=== PATIENT | female | born 1955 | race Caucasian/White ===

== ENCOUNTER 2020-04-04 10:16 | Observation (INO) | payer MEDICARE, OTHER, SELFPAY ==
[2020-04-04] VITALS (7 sets, daily range): BP systolic 96–134; BP diastolic 48–75; PULSE 54–93; RESP 14–18; TEMP 36.2–36.4; O2SAT 100; BMI 34.2
--- NOTE | ~2020-04-04 | CT_ITS ---
EXAMINATION: CT chest abdomen wo con DATE: 04/04/2020 11:14 INDICATION: Gastroesophageal hernia repair presenting with pain in the region of the repair. TECHNIQUE: Computed tomography (CT) of the chest and abdomen was performed without intravenous contra st. Automated exposure control and iterative reconstruction technique were employed. The dose-length product was 656.76 mGy-cm. COMPARISON: None FINDINGS: CHEST CT: Eventration along the diaphragm. Minimal dependent and basilar atelectasis in both lungs. Calcified l eft lower lobe nodule and calcified left hilar lymph node consistent with old granulomatous disease. No pneumonia, pulmonary edema, pleural effusion or pneumothorax. Heart size is normal. No pericardial effusion. Small focus of atherosclerotic calcification at or near the bifurcation of the left main c oronary artery. Thoracic aorta is normal in caliber. No pathologically enlarged thoracic lymphadenopa thy. Residual/recurrent moderate-sized sliding-type hiatal hernia with multiple surgical clips at the thoracic hiatus likely related to reported prior hiatal hernia repair. Moderate to severe disc heigh t loss with Modic type III sclerotic endplate changes at T8-T9. Otherwise mild thoracic spondylosis. ABDOMEN CT: Common bile duct is dilated to 12 mm and there is mild intrahepatic biliary ductal dilation which cou ld be related to prior cholecystectomy with surgical clips at the gallbladder fossa. No definitive ob structing stone or mass identified at the distal common bile duct. Multiple splenic calcifications co nsistent with old granulomatous disease. Pancreas, bilateral adrenal glands and kidneys are normal. T here is extensive scattered colonic diverticulosis without adjacent inflammatory change to suggest di verticulitis. The appendix and tip of the cecum are not included within the region of imaging. The vi sualized portions of the small bowel are normal. Tiny fat-containing umbilical hernia. No pathologica lly enlarged abdominal lymphadenopathy. 2-3 mm anterolisthesis L4 on L5. Severe bilateral facet osteo arthritis at L4-L5 and L5-S1. IMPRESSION: 1. Moderate-sized residual/recurrent sliding-type hiatal hernia with multiple surgical clips at the t horacic hiatus consistent with reported history of prior hiatal hernia repair. 2. Mild intra and extra hepatic biliary ductal dilation without evident obstructing lesion which may be related to prior cholecystectomy. Correlate with liver function tests. 3. Diverticulosis. Reviewed, dictated and finalized at location A. IMPRESSION: 1. Moderate-sized residual/recurrent sliding-type hiatal hernia with multiple s urgical clips at the thoracic hiatus consistent with reported history of prior hiatal hernia repair. 2. Mild intra and extra hepatic biliary ductal dilation without evident obstruc ting lesion which may be related to prior cholecystectomy. Correlate with liver function tests. 3. Diverticulosis.
--- NOTE | 2020-04-04 10:52 | ECG_ITS ---
Measurements Intervals [place] Rate: 58 P: 31 NV: 155 QRS: -25 QRSD: 87 T: 6 QT: 406 QTc: 400 Interpretive Statements SINUS BRADYCARDIA RSR' IN V1 OR V2, CONSIDER RIGHT VENTRICULAR HYPERTROPHY OR RIGHT VCD VOLTAGE CRITERIA FOR LVH BORDERLINE ECG Electronically Signed On 04-04-2020 11:32:13 CDT by Arnoldo Daniels D.O.
[2020-04-04 10:59] LABS: Basophils Percent Auto 0.7 % (0.2-1.2); Eosinophils Absolute Auto 0.5 K/mm3 (0-0.3); Eosinophils Percent Auto 8.6 % (0-4.4); Hematocrit 40.4 % (37.0-47.0); Hemoglobin 13.1 g/dL (12.0-15.0); Immature Granulocyte Absolute 0.02 K/mm3 (0.00-0.031); Immature Granulocyte Percent A 0.3 % (0-0.5); Lymphocytes Absolute Auto 1.84 K/mm3 (0.9-3.2); Mean Corpuscular HGB Conc 32.4 g/dl (32-36); Mean Corpuscular Hemoglobin 28.2 pg (26-34); Mean Corpuscular Volume 86.9 fl (80-100); Mean Platelet Volume 9.9 fl (7.4-10.4); Monocytes Absolute Auto 0.3 K/mm3 (0.1-0.6); Monocytes Percent Auto 5.4 % (2.6-8.5); Neutrophils Absolute Auto 3.4 K/mm3 (1.3-6.7); Platelet Count Result 249 k/mm3 (150-375); Red Blood Count 4.65 M/mm3 (4.2-5.4); Red Cell Distribution Width 14.2 % (11.5-14.5); White Blood Count 6.1 K/mm3 (4.5-10.0)
[2020-04-04 11:02] LABS: Add Urine Microscopic? NO; Appearance Urine Clear (Clear); Bilirubin Urine Negative (Negative); Blood Urine Negative (Negative); Color Urine Straw (Yellow); Glucose Urine UA Negative (Negative); Ketones Urine Negative (Negative); Leukocyte Esterase Ur Negative LEU/UL (Negative); Nitrate Urine Negative (Negative); Protein Urine Negative (Negative); Specific Grav Ur 1.008 (1.001-1.035); Urobilinogen Urine Negative mg/dL (<2.0)
[2020-04-04 11:12] LABS: Alanine Aminotransferase 32 U/L (4-35); Albumin Level 4.4 g/dL (3.5-5.1); Alkaline Phosphatase 122 U/L (38-126); Anion Gap 7 mmol/L (8-16); Aspartate Amino Transferase 78 U/L (14-36); Bilirubin,Total 1.3 mg/dL (0.2-1.3); Blood Urea Nitrogen 15 mg/dL (7-17); Calcium 9.4 mg/dL (8.4-10.2); Carbon Dioxide 30 mmol/L (22-30); Chloride 97 mmol/L (98-107); Estimated CRCL calculation 35 ml/min; Estimated Glomerular Filt Rate 41; Glucose 145 mg/dL (65-105); Lipase 1939 U/L (23-300); Potassium 3.9 mmol/L (3.4-5.0); Sodium 134 mmol/L (137-145)
--- NOTE | 2020-04-04 12:00 | ED.ABDPAIN ---
HPI - Abdominal Pain General Chief Complaint: Abdominal Pain <Roxanne Quevedo PA-C - Last Filed: 04/04/20 13:29> Stated Complaint: abd pain <Roxanne Quevedo PA-C - Last Filed: 04/04/20 13:29> Time Seen by Provider: 04/04/20 10:38 <Roxanne Quevedo PA-C - Last Filed: 04/04/20 13:29> Source: patient <Roxanne Quevedo PA-C - Last Filed: 04/04/20 13:29> Mode of arrival: ambulatory <PJ Ferrer Last Filed: 04/04/20 13:29> Limitations: no limitations <Roxanne Quevedo PA-C - Last Filed: 04/04/20 13:29> History of Present Illness HPI narrative: Patient with history of hiatal and esophageal hernia repair in 2010 and cholecystectomy in 1997 presents with CC of epigastic pain that began at approximately 9:30 am after eating a burger. Patient states she does not normally struggle with abdominal pain and has been eating and drinking normally and had a normal bowel movement yesterday. She denies chest pain, SOB, MONIQUE. She reports chills initially when the discomfort began. She reports that the discomfort feels like a bloating pressure epigastrically. She reports nausea has improved and denies vomiting. She denies alcohol use, history of pancreatitis, or hepatitis. <Roxanne Quevedo PA-C - Last Filed: 04/04/20 13:29> Related Data Home Medications: Home Medications Medication Instructions Recorded Confirmed atenolol 25 mg PO DAILY 04/04/20 04/04/20 calcium carbonate [Calcium 600] 600 mg PO BID 04/04/20 04/04/20 gabapentin 600 mg PO TID 04/04/20 04/04/20 lisinopril 2.5 mg PO DAILY 04/04/20 04/04/20 sertraline 50 mg PO HS 04/04/20 04/04/20 simvastatin 40 mg PO HS 04/04/20 04/04/20 tramadol 50 mg PO Q6H PRN 04/04/20 04/04/20 venlafaxine [Effexor XR] 150 mg PO QAM 04/04/20 04/04/20 zolpidem [Ambien] 5 mg PO HS PRN 04/04/20 04/04/20 <Roxanne Quevedo PA-C - Last Filed: 04/04/20 13:29> Allergies/Adverse Reactions: Allergies Allergy/AdvReac Type Severity Reaction Status Date / Time No Known Allergies Allergy Verified 04/04/20 13:52 <Roxanne Quevedo PA-C - Last Filed: 04/04/20 13:29> Review of Systems Review of Systems: Narrative: CONSTITUTIONAL: Denies fever, chills, or sweats. EYES: Denies visual changes, redness, or discharge. ENT: Denies rhinorrhea, congestion, sore throat, or otalgia. CARDIOVASCULAR: Denies chest pain, palpitations, or edema. RESPIRATORY: Denies cough or dyspnea. GASTROINTESTINAL:Reports epigastric pain and resolved nausea, denies vomiting or diarrhea GENITOURINARY: Denies dysuria or hematuria. SKIN: Denies rash or itching. MUSCULOSKELETAL: Denies back pain, myalgia, or joint pain NEUROLOGIC: Denies headache, numbness, dizziness, or weakness. PSYCHIATRIC: Denies anxiety or depression. <Roxanne Quevedo PA-C - Last Filed: 04/04/20 13:29> [facility] Past Medical History Medical History: Medical History (Updated 04/05/20 @ 18:34 by Dustin Garg MD) Depression with anxiety Hiatal hernia Hyperlipidemia Hypertension Laceration of right knee at age 3 repair Lymph nodes enlarged calcified lymph nodes removed under Thatch and left leg <Roxanne Quevedo PA-C - Last Filed: 04/04/20 13:29> Surgical History Surgical History: Surgical History (Updated 04/04/20 @ 19:42 by Carly Santana NP) History of repair of hiatal hernia Hx of cholecystectomy <Roxanne Quevedo PA-C - Last Filed: 04/04/20 13:29> Family History Family History: Family History (Updated 04/04/20 @ 19:43 by Carly Santana NP) Father Chronic obstructive pulmonary disease Lung cancer Mother Chronic obstructive pulmonary disease Atrial fibrillation Sibling Coronary heart disease Sibling Metastatic breast cancer <Roxanne Quevedo PA-C - Last Filed: 04/04/20 13:29> Social History Social History: Social History (Updated 04/04/20 @ 19:45 by Carly Santana NP) Social History: the patient retired from being a nurse at [employer] but
--- NOTE | 2020-04-04 13:40 | ADMGEN ---
This patient, Gaby Medina, was admitted to Medical Room 252-. Patient/family oriented to hospital policies and general routines including ID bracelet, bed and alarms, visiting hours, pain management, procedures, bathroom and other care routines, personal items, smoking policy, room service/diet, and visiting hours. Valuables list has been completed. Information on how to activate the Rapid Response Team has been discussed. Patient/Family are encouraged to report perceived risks to care and to ask questions if they do not understand what they are told or what they should do.
[2020-04-04] MEDS: SODIUM CHLORIDE 0.9% IV 1,000 ML 125 ML IV CONT ×2 (14:37→23:06)
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
[2020-04-04] MEDS: GABAPENTIN 300 MG CAPSULE 600 MG PO (21:28)
[2020-04-04] MEDS: SERTRALINE HCL 50 MG TABLET PO (21:28)
[2020-04-05 04:46] VITALS: BP 125/50; PULSE 58; RESP 16; TEMP 36.2; O2SAT 99
[2020-04-05 05:36] LABS: Basophils Percent Auto 0.9 % (0.2-1.2); Eosinophils Absolute Auto 0.6 K/mm3 (0-0.3); Eosinophils Percent Auto 11.9 % (0-4.4); Hematocrit 34.7 % (37.0-47.0); Hemoglobin 11.2 g/dL (12.0-15.0); Lymphocytes Absolute Auto 1.99 K/mm3 (0.9-3.2); Lymphocytes Percent Auto 42.4 % (18.3-44.2); Mean Corpuscular HGB Conc 32.3 g/dl (32-36); Mean Corpuscular Hemoglobin 27.7 pg (26-34); Mean Corpuscular Volume 85.9 fl (80-100); Mean Platelet Volume 10.1 fl (7.4-10.4); Monocytes Absolute Auto 0.4 K/mm3 (0.1-0.6); Monocytes Percent Auto 7.7 % (2.6-8.5); Neutrophils Absolute Auto 1.7 K/mm3 (1.3-6.7); Neutrophils Percent Auto 37.1 % (45.5-73.1); Platelet Count Result 210 k/mm3 (150-375); Red Blood Count 4.04 M/mm3 (4.2-5.4); Red Cell Distribution Width 13.7 % (11.5-14.5); White Blood Count 4.7 K/mm3 (4.5-10.0)
[2020-04-05 05:48] LABS: Alanine Aminotransferase 36 U/L (4-35); Albumin Level 3.5 g/dL (3.5-5.1); Alkaline Phosphatase 99 U/L (38-126); Anion Gap 4 mmol/L (8-16); Aspartate Amino Transferase 54 U/L (14-36); Bilirubin,Total 1.1 mg/dL (0.2-1.3); Blood Urea Nitrogen 14 mg/dL (7-17); Calcium 8.6 mg/dL (8.4-10.2); Carbon Dioxide 24 mmol/L (22-30); Chloride 108 mmol/L (98-107); Cholesterol 143 mg/dL (0-200); Estimated CRCL calculation 50 ml/min; Estimated Glomerular Filt Rate > 60; Glucose 84 mg/dL (65-105); HDL Direct 39 mg/dL; Lipase 116 U/L (23-300); Sodium 136 mmol/L (137-145); Triglycerides 99 mg/dL (<150)
[2020-04-05 05:59] LABS: LDL Cholesterol Direct 84 mg/dL
[2020-04-05] MEDS: SODIUM CHLORIDE 0.9% IV 1,000 ML 125 ML IV CONT (06:55)
[2020-04-05 09:09] VITALS: PULSE 60
[2020-04-05] MEDS: atenoloL 25 MG TABLET PO (09:09)
[2020-04-05] MEDS: CALCIUM CARBONATE (OSCAL) 500 MG TABLET PO ×2 (09:10→16:56)
[2020-04-05] MEDS: VENLAFAXINE HCL XR 75 MG CAP.ER.24H 150 MG PO (09:10)
[2020-04-05] MEDS: GABAPENTIN 300 MG CAPSULE 600 MG PO ×3 (09:10→16:56)
[2020-04-05 14:00] VITALS: BP 123/42; PULSE 54; RESP 12; TEMP 36.3; O2SAT 99
--- NOTE | 2020-04-05 18:28 | PM.DS ---
DS: Admitting Diagnosis Admitting Diagnosis Admitting Diagnosis: pancreatitis DS: Discharge Diagnosis Discharge Diagnosis (1) Acute pancreatitis: Qualifiers: Acute pancreatitis complication: no infection or necrosis Pancreatitis type: unspecified pancreatitis type Qualified Code(s): K85.90 - Acute pancreatitis without necrosis or infection, unspecified Code(s): K85.90 - Acute pancreatitis without necrosis or infection, unspecified Status: Acute Assessment and Plan: The patient began to have abdominal pain after eating a burger. Labs showing lipase of 1940, mild eosinophilia, elevated Cr to 1.3, mild elevateion of AST and normal UA. CT scan showing normal pancreas and mild intra and extra hepatic biliary ductal dilation without evident obstructing lesion which may be related to prior cholecystectomy. TG 99, total chol 143, LDL 84. She probably passed a biliary stone. Patietn started on IV fluids. She was made NPO. Lipase normalized. Her pain resolved. She was started on a clear liquid diet and advanced to a low fat diet. She sis not have any recurent symptoms. She was able to be discharged home. (2) RODGER (acute kidney injury): Code(s): N17.9 - Acute kidney failure, unspecified Status: Acute Assessment and Plan: Cr 1.3 on admission probably related to dehydration. Kidneys apperaed normal on CT. She was made NPO and stared on IV fluids. repeat renal function was normal. (3) Hypertension: Code(s): I10 - Essential (primary) hypertension Status: Chronic Assessment and Plan: BP soft at times. Atenolol was continued which she tolerated well but lisinopril remained on hold. SBP now in the 12's so Lisinopril resumed at discharge since it is a small dose and she should be able to tolerate. (4) Hyperlipidemia: Code(s): E78.5 - Hyperlipidemia, unspecified Status: Chronic Assessment and Plan: AST 78 and ALT normal at 32 on admission. [place] related to above. Simvastatin was held. Repeat AST 54 and ALT 36 so tis was resumed at discharge. (5) Depression with anxiety: Code(s): F41.8 - Other specified anxiety disorders Status: Chronic Assessment and Plan: Mood remained stable. We continued her Effexor and Zoloft. (6) Hiatal hernia: Code(s): K44.9 - Diaphragmatic hernia without obstruction or gangrene Status: Chronic Assessment and Plan: Patient with chronic hiatal hernia that she has had repaired once before. CT scan showing moderate-sized residual/recurrent sliding-type hiatal hernia with multiple surgical clips at the thoracic hiatus consistent with reported history of prior hiatal hernia repair. DS: Summary Hospital Course Reason for hospitalization: 64yo female here for abdominal pain. Please see H&P for details Hospital Course: As above Time Spent with Patient Time attestation: Total time spent providing and/or coordinating discharge services:36 minutes Time spent: Greater than 30 minutes Exam Narrative: Exam Narrative: AF 123/42 54 12 99% Gen - NARD Chest - CTA bilaterally, nml RR CV - RRR S1/S2 Abd - Soft, NT/ND, Positive BS Ext - No pedal edema Psych - Nml mood and affect Skin - Warm and dry DS: Data Data Completed and Pending Labs on day of discharge: Labs from last 24 hours 04/05/20 04/05/20 04/05/20 05:14 05:14 05:14 WBC 4.7 RBC 4.04 L Hgb 11.2 L Hct 34.7 L MCV 85.9 MCH 27.7 MCHC 32.3 RDW 13.7 Plt Count 210 MPV 10.1 Immature Gran % (Auto) 0.0 Neut % (Auto) 37.1 L Lymph % (Auto) 42.4 [place] % (Auto) 7.7 Eos % (Auto) 11.9 H Baso % (Auto) 0.9 Lymph # (Auto) 1.99 [place] # (Auto) 0.4 Eos # (Auto) 0.6 H Baso # (Auto) 0.0 Abs Immat Gran (auto) 0.00 Absolute Neuts (auto) 1.7 Absolute Nucleated RBC 0.0 Nucleated RBC % 0.0 Sodium 136 L Potassium 4.0 Chloride 108 H Car
== END 2020-04-05 19:00 | disposition home or self-care (01) ==
LOC: ANHED 10:55 → ANH2MED 13:29
PROVIDERS: Nurse Practitioner; Admitting Provider Family Medicine; Emergency Provider General Practice; PCP Internal Medicine; Visit Provider Internal Medicine
DX: K85.90 Acute pancreatitis without necrosis or infection, unspecified (principal); R10.13 Epigastric pain; K44.9 Diaphragmatic hernia without obstruction or gangrene; I10 Essential (primary) hypertension; E78.5 Hyperlipidemia, unspecified; F41.8 Other specified anxiety disorders
CPT/HCPCS: 36415; 71250; 74150; 80053; 80061; 81003; 83690; 84443; 85025; 93005; 96360; 96361; 99285; A9270; G0378; J7030

== ENCOUNTER 2020-05-06 11:37 | Emergency (ER) | payer MEDICARE, OTHER, SELFPAY ==
--- NOTE | 2020-05-06 11:41 | ED.SKABFB ---
HPI - Skin/Abscess/Foreign Bdy General Chief complaint: Skin/Abscess/Foreign Body Stated complaint: splinter Time Seen by Provider: 05/06/20 11:44 Source: patient and RN notes reviewed History of Present Illness HPI narrative: Patient is a 65-year-old female who presents the urgent care with complaints of a splinter to the right hand. Patient states that she ran her hand over her back railing last night and a large splinter went into the right hand. Patient states that she was able to remove part of the splinter but does feel like there is some left in the hand . Patient states that it is slightly painful to the area and red. Denies of any other acute complaints or injuries. No acute distress noted. Patient aware of the plan of care. Some parts of this dictation were generated by voice recognition software and may contain typographical and/or grammatical inaccuracies. Related Data Home Medications Medication Instructions Recorded Confirmed atenolol 25 mg PO DAILY 04/04/20 05/06/20 calcium carbonate [Calcium 600] 600 mg PO BID 04/04/20 05/06/20 gabapentin 600 mg PO TID 04/04/20 05/06/20 lisinopril 2.5 mg PO DAILY 04/04/20 05/06/20 sertraline 50 mg PO HS 04/04/20 05/06/20 simvastatin 40 mg PO HS 04/04/20 05/06/20 venlafaxine [Effexor XR] 150 mg PO QAM 04/04/20 05/06/20 Allergies Allergy/AdvReac Type Severity Reaction Status Date / Time No Known Allergies Allergy Verified 04/04/20 13:52 Review of Systems Review of Systems: Narrative: CONSTITUTIONAL: Denies fever, chills, or sweats. EYES: Denies visual changes, redness, or discharge. ENT: Denies rhinorrhea, congestion, sore throat, or otalgia. CARDIOVASCULAR: Denies chest pain, palpitations, or edema. RESPIRATORY: Denies cough or dyspnea. GASTROINTESTINAL: Denies abdominal pain, nausea, vomiting, or diarrhea. GENITOURINARY: Denies dysuria or hematuria. SKIN: Reports of a splinter to the right hand MUSCULOSKELETAL: Denies back pain, joint pain, or myalgia. NEUROLOGIC: Denies headache, numbness, or weakness. All other systems reviewed are negative, except as documented in HPI. PMFSH Past Medical History Medical History (Updated 05/06/20 @ 11:51 by JESSA Garcia) Depression with anxiety Hiatal hernia Hyperlipidemia Hypertension Laceration of right knee at age 3 repair Lymph nodes enlarged calcified lymph nodes removed under Thatch and left leg Surgical History Surgical History (Updated 04/04/20 @ 19:42 by Carly Santana NP) History of repair of hiatal hernia Hx of cholecystectomy Family History Family History (Updated 04/04/20 @ 19:43 by Carly Santana NP) Father Chronic obstructive pulmonary disease Lung cancer Mother Chronic obstructive pulmonary disease Atrial fibrillation Sibling Coronary heart disease Sibling Metastatic breast cancer Social History Social History (Updated 04/04/20 @ 19:45 by Carly Santana NP) Social History: 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 She lives with her and has 2 children. Her oldest son William is a durable power senior attorney for healthcare. The patient is a full code. She denies any alcohol, marijuana, tobacco or illicit drugs. Smoking packs per day: 0.5 Smoking cigarettes per day: 10.0 Years smoked: 5 Smoking pack-years: 2.50 Smoking status: Former smoker Tobacco type: cigarettes Second hand tobacco smoke exposure: Yes Alcohol intake: never Substance use: never Substance use type: does not use Gender identity (if verbalized by the patient): Female Spiritual care concerns: No Comments At the time of my signature, I reviewed and agree with the nursing past medical, surgical, social, and family history. There is no relevant family history pertinent to the patient complaint. Exam Narrative: Exam Narrative: GENERAL: This is a well-nourished, well-developed patient, in no appar
[2020-05-06 11:46] VITALS: BP 133/62; PULSE 69; RESP 20; TEMP 36.4; O2SAT 99
[2020-05-06 11:50] VITALS: BP 133/62; PULSE 69; RESP 20; TEMP 36.4; O2SAT 99
== END 2020-05-06 12:03 | disposition home or self-care (01) ==
PROVIDERS: Emergency Provider Nurse Practitioner Family; PCP Internal Medicine
DX: S61.441A Puncture wound with foreign body of right hand, initial encounter (principal); W45.8XXA Other foreign body or object entering through skin, initial encounter; Z87.891 Personal history of nicotine dependence; F41.9 Anxiety disorder, unspecified; F32.9 Major depressive disorder, single episode, unspecified; E78.5 Hyperlipidemia, unspecified; I10 Essential (primary) hypertension
CPT/HCPCS: 99213; G0463

== ENCOUNTER → 2020-06-05 15:19 | Outpatient (CLI) | payer MEDICARE, OTHER, SELFPAY ==
--- NOTE | ~2020-06-05 | US_ITS ---
EXAMINATION: US soft tissue UE RT DATE: 06/05/2020 15:45 INDICATION: Wooden foreign body TECHNIQUE: Multiple grayscale and Doppler ultrasound images of the region of concern at the right kohler d were obtained. COMPARISON: None FINDINGS: There is a 1.2 cm long 1-2 mm diameter thin linear echogenic foreign body in the subcutaneous tissues at the webspace between the first and second digits. This is positioned from 2-4 mm deep to the skin surface. There is a 1.5 m thick hypoechoic region surrounding the foreign body consistent with assoc iated abscess/phlegmonous change. There is a second similar-appearing slightly shorter linear foreign body measuring 8 mm in length loc ated in the fat pad underlying the first metacarpal position approximately 9 mm from the closest tip of the larger foreign body. This positioned from 2-3 mm deep to the skin surface. There is a similar surrounding hypoechoic region with a larger loculated 7 x 3 x 6 mm complex hypoechoic likely abscess extending from the tip of the foreign body outside to the site closer to the larger foreign body. Thi s encroaches to within 1 mm of the skin surface. IMPRESSION: 1. 2 small linear foreign bodies in the subcutaneous tissues at the region of concern as detailed abo ve with tiny associated likely abscess. Reviewed, dictated and finalized at location H. [facility] HOME AIDE IMPRESSION: 1. 2 small linear foreign bodies in the subcutaneous tissues at the region of c oncern as detailed above with tiny associated likely abscess.
== END ==
PROVIDERS: Visit Provider Plastic Surgery
DX: S60.551A Superficial foreign body of right hand, initial encounter (principal); M79.644 Pain in right finger(s)
CPT/HCPCS: 76882

== ENCOUNTER 2021-05-23 00:41 | Day surgery (SDC) | payer MEDICARE, OTHER, SELFPAY ==
[2021-05-17 15:15] VITALS: BMI 34.7
--- NOTE | 2021-05-23 11:47 | PM.IMHP ---
"H&P: HPI History of Present Illness Date/Time: 05/23/21 11:47 66 y/o with vaginal spotting. A small polyp was prolapsing through the cervix. This was excised and found to be benign. Chief Complaint: Bleeding Review of Systems Review of Systems: All systems reviewed & are unremarkable except as noted in HPI and below PMFSH Past Medical History Medical History Depression with anxiety Hiatal hernia History of pancreatitis Hyperlipidemia Hypertension Laceration of right knee at age 3 repair Lymph nodes enlarged calcified lymph nodes removed under Thatch and left leg Surgical History Surgical History History of repair of hiatal hernia Hx of cholecystectomy Family History Family History Father Chronic obstructive pulmonary disease Lung cancer Mother Chronic obstructive pulmonary disease Atrial fibrillation Sibling Coronary heart disease Sibling Metastatic breast cancer Social History Social History Social History: 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 She lives with her and has 2 children. Her oldest son William is a durable power trade [employer] attorney for healthcare. The patient is a full code. She denies any alcohol, marijuana, tobacco or illicit drugs. Smoking packs per day: 0.5 Smoking cigarettes per day: 10.0 Years smoked: 7 Smoking pack-years: 3.50 Smoking status: Former smoker Tobacco type: cigarettes Second hand tobacco smoke exposure: Yes Smoking end date: 07/21/84 Alcohol intake: never Substance use: never Substance use type: does not use Living arrangements: with family Gender identity (if verbalized by the patient): Female Spiritual care concerns: No Meds Home Medications and Allergies Home Medications Medication Instructions Recorded Confirmed Type atenolol 25 mg PO DAILY 04/04/20 05/17/21 History calcium carbonate [Calcium 600] 600 mg PO BID 04/04/20 05/17/21 History gabapentin 600 mg PO BID 04/04/20 05/17/21 History lisinopril 2.5 mg PO DAILY 04/04/20 05/17/21 History sertraline 50 mg PO HS 04/04/20 05/17/21 History simvastatin 40 mg PO HS 04/04/20 05/17/21 History venlafaxine [Effexor XR] 150 mg PO QAM 04/04/20 05/17/21 History tramadol 50 mg PO PRN PRN 05/17/21 05/17/21 History zolpidem 6.25 mg PO PRN PRN 05/17/21 05/17/21 History Allergies Allergy/AdvReac Type Severity Reaction Status Date / Time No Known Allergies Allergy Verified 05/17/21 15:01 Exam Const: Orientation/consciousness: patient oriented x3 Other: Well-developed, well-nourished female in no acute distress. Neck: Thyroid: thyroid normal Lymphatic: no lymphadenopathy noted (in neck, axilla or inguinal nodes) Resp: Effort & Inspection: normal respiratory effort Auscultation: clear to auscultation bilaterally Cardio: Rate: regular rate Rhythm: regular rhythm Heart sounds: S1 normal heart sound present and S2 normal heart sound present GI: Other: ABD: Soft, nontender, nondistended. No guarding or rebound tenderness. No hepatosplenomegaly. : General: Yes no CVA tenderness Other: External genitalia: normal female hair distribution, without lesion. Urethral meatus: no lesion, non prolapsed. Bladder: no mass, nontender Vagina: well-estrogenized, without lesion or discharge. No cystocele or rectocele. Cervix: A small polyp was noted at exam in April 2021 Uterus: small, anteverted, freely mobile, nontender Adnexa: no mass or tenderness. Anus/perineum: no lesions, nontender Back/Spine/Pelvis: Back: no CVA tenderness Skin: General skin exam: normal color and no rashes or lesions noted Neuro: General: patient oriented x3 Extrem: Other: Extremities: nontender with no e"
--- NOTE | 2021-05-23 12:04 | WPDHPUPDATE1 ---
History and Physical Update Update Date/Time: 05/23/21 12:04 History and Physical has been reviewed, including an updated exam of the patient. There are NO changes in the patient's condition. We reviewed the procedure and she would like the ovaries to be removed if possible. The consent reads total vaginal hysterectomy with bilateral salpingooophorectomy. Risks, benefits, and alternatives have been discussed and questions answered. Patient agrees to proceed with procedure.
--- NOTE | 2021-05-23 12:10 | WPDHPUPDATE1 ---
History and Physical Update Update Date/Time: 05/23/21 12:10 History and Physical has been reviewed, including an updated exam of the patient. There are NO changes in the patient's condition. Risks, benefits, and alternatives have been discussed and questions answered. Patient agrees to proceed with procedure.
[2021-05-23] MEDS: ACETAMINOPHEN 500 MG TABLET 1000 MG PO (12:19)
[2021-05-23 12:32] VITALS: BP 152/64; PULSE 67; RESP 16; TEMP 36.8; O2SAT 97
--- NOTE | 2021-05-23 12:32 | WPDANESEPPF ---
Anes - Initial Pre Proc Eval Procedure: Operation Date: 05/23/21 14:00 Proposed Procedures p Hysteroscopy, Dilation and Curettage - Myles Wallace MD Date/Time: 05/23/21 12:32 Surgeon: Myles Wallace MD Pre Op Diagnosis: post menopausal bleeding Patient Data Age: 66 Gender: F Height: 1.52 m Weight: 80.75 kg Allergies Allergy/AdvReac Type Severity Reaction Status Date / Time No Known Allergies Allergy Verified 05/23/21 12:38 Home Medications Medication Instructions Recorded Confirmed Type atenolol 25 mg PO DAILY 04/04/20 05/23/21 History calcium carbonate [Calcium 600] 600 mg PO BID 04/04/20 05/17/21 History gabapentin 600 mg PO BID 04/04/20 05/23/21 History lisinopril 2.5 mg PO DAILY 04/04/20 05/23/21 History sertraline 50 mg PO HS 04/04/20 05/17/21 History simvastatin 40 mg PO HS 04/04/20 05/17/21 History venlafaxine [Effexor XR] 150 mg PO QAM 04/04/20 05/23/21 History tramadol 50 mg PO PRN PRN 05/17/21 05/17/21 History zolpidem 6.25 mg PO PRN PRN 05/17/21 05/17/21 History Patient hx anesthesia problems: none Family hx anesthesia problems: none Results Review: All pre-operative results and documents have been reviewed as part of the pre-operative evaluation. [facility] Past Medical History Medical History (Updated 05/23/21 @ 12:34 by Hector You MD) Depression with anxiety Hiatal hernia History of pancreatitis Hyperlipidemia Hypertension Laceration of right knee at age 3 repair Lymph nodes enlarged calcified lymph nodes removed under Thatch and left leg Obesity Surgical History Surgical History History of repair of hiatal hernia Hx of cholecystectomy Family History Family History Father Chronic obstructive pulmonary disease Lung cancer Mother Chronic obstructive pulmonary disease Atrial fibrillation Sibling Coronary heart disease Sibling Metastatic breast cancer Social History Social History Social History: 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 She lives with her and has 2 children. Her oldest son William is a durable power erisa attorney for healthcare. The patient is a full code. She denies any alcohol, marijuana, tobacco or illicit drugs. Smoking packs per day: 0.5 Smoking cigarettes per day: 10.0 Years smoked: 7 Smoking pack-years: 3.50 Smoking status: Former smoker Tobacco type: cigarettes Second hand tobacco smoke exposure: Yes Smoking end date: 07/21/84 Alcohol intake: never Substance use: never Substance use type: does not use Living arrangements: with family Gender identity (if verbalized by the patient): Female Spiritual care concerns: No Anes - Eval Final PreProcedure Day of Procedure 05/23/21 12:32 Patient weight: obese Heart: regular rate and rhythm Lungs: clear to auscultation and normal air movement Airway: Mallampati scale class II Neurological: alert and oriented Last oral intake: >/= 8 hours ASA classification: III Emergent: no Anesthetic plan: proceed Anesthesia type and monitoring: general GIVS Results Review: All pre-operative results and documents have been reviewed as part of the pre-operative evaluation. Informed Consent: The patient's anesthetic plan and its attendant risks and benefits were discussed with the patient/family/POA. Questions were solicited and answers provided to the satisfaction of the patient/family/POA.
[2021-05-23] MEDS: LACTATED RINGERS 1,000 ML 30 ML IV CONT (12:38)
--- NOTE | 2021-05-23 14:45 | SUR.OPER ---
350ml ns in, 250ml ns out. md aly
--- NOTE | 2021-05-23 14:51 | W.PM.PROC2 ---
Procedure Note - Detailed Date of Procedure 05/23/21 Pre-op Diagnosis post menopausal bleeding Post-op Diagnosis same Procedure Performed Hysteroscopy Dilation and sharp curettage Cervical polypectomy Endometrial polypectomy Surgeon Myles Wallace MD Anesthesia MAC and local (1% lidocaine) Findings Small cervical polyp. Large endometrial polyp. Both tubal ostia seen. Description of Procedure The patient was taken to the operating room where she was prepared and draped in the usual sterile fashion in the dorsal lithotomy position. The bladder was drained with a red rubber catheter. A sterile speculum was placed into the vagina. The anterior lip of the cervix was grasped with single-tooth tenaculum. Ten mL of 1% lidocaine was administered in a paracervical block. The cervix was then gently dilated using Hegar dilators until an 8 mm dilator could be passed. Hysteroscopy was performed using sterile saline as a distention medium. Findings are as noted above. A polyp forceps was advance and a large endometrial polyp was removed. The small cervical polyp was also grasped and easily removed. Sharp curettage was then performed, and endometrial curettings were collected on a Telfa pad and passed off to be sent to pathology. Hemostasis was excellent. Sponge, lap, needle and instrument counts were correct. The patient was awakened and taken to the recovery room in stable condition. I was present and scrubbed through the entire procedure. Estimated Blood Loss 10 Drains No Packing No Pathology yes (Endometrial curettings, endometrial and cervical polyps) Complications None Condition stable Disposition PACU
[2021-05-23 14:52] VITALS: BP 112/57; PULSE 62; RESP 14; O2SAT 94
[2021-05-23 15:15] VITALS: BP 126/65; PULSE 57; RESP 20
[2021-05-23 15:45] VITALS: BP 135/59; PULSE 54; RESP 20
[2021-05-23 16:10] VITALS: RESP 20
== END 2021-05-23 16:18 | disposition home or self-care (01) ==
PROVIDERS: PCP Internal Medicine; Visit Provider Obstetrics & Gynecology
PROC: 0U5B8ZZ Destruction of Endometrium, Via Natural or Artificial Opening Endoscopic (ICD-10-PCS; CPT 58563; principal; 2021-05-23 14:00)
DX: C54.1 Malignant neoplasm of endometrium (principal); N95.0 Postmenopausal bleeding; N84.1 Polyp of cervix uteri; N84.0 Polyp of corpus uteri; Q50.6 Other congenital malformations of fallopian tube and broad ligament; Z87.891 Personal history of nicotine dependence; Z90.49 Acquired absence of other specified parts of digestive tract; F41.8 Other specified anxiety disorders; I10 Essential (primary) hypertension; E66.9 Obesity, unspecified; Z68.35 Body mass index [BMI] 35.0-35.9, adult; E78.5 Hyperlipidemia, unspecified
CPT/HCPCS: 58558; 88305; A9270; J2250; J2405; J2704; J3010; J7030; J7120